=== PATIENT | male | born 1985 | race Caucasian/White ===

== ENCOUNTER 2025-06-14 06:44 | Emergency (ER) | payer SELFPAY ==
[~2025-06-14] VITALS: Ht 182.9 cm; Wt 91.0 kg
[2025-06-14 06:53] VITALS: O2SAT 100
[2025-06-14] MEDS ORDERED: IBUP-2028 PO (08:06)
[2025-06-14 08:19] VITALS: BP 138/91; PULSE 89; RESP 15; TEMP 37; O2SAT 99
[2025-06-14] MEDS: IBUPROFEN 400MG TABLET PO ONE (08:19)
== END 2025-06-14 08:21 | disposition home or self-care (01) ==
LOC: ER 06:44
DX: S60.022A Contusion of left index finger without damage to nail, initial encounter (principal); W01.0XXA Fall on same level from slipping, tripping and stumbling without subsequent striking against object, initial encounter; Y93.89 Activity, other specified; Y92.89 Other specified places as the place of occurrence of the external cause; Y99.8 Other external cause status
CPT/HCPCS: 73120; 99283

== ENCOUNTER 2025-06-16 09:40 | Emergency (ER) | payer SELFPAY ==
[~2025-06-16] VITALS: Ht 182.9 cm; Wt 85.0 kg
[~2025-06-16 09:40] MED LIST: IBUP-2028 PO
[2025-06-16 10:13] VITALS: O2SAT 100
[2025-06-16] MEDS: KETOROLAC 30MG/ML VIAL IM ONE (11:30)
[2025-06-16] MEDS: ACETAMINOPHEN 500MG TABLET PO ONE (11:30)
[2025-06-16] MEDS ORDERED: IBUP-2028 MT (13:18)
[2025-06-16] MEDS ORDERED: AMOX1TAB16 MT (13:20)
[2025-06-16 13:26] VITALS: BP 135/89; PULSE 95; RESP 16; TEMP 36.6; O2SAT 100
== END 2025-06-16 13:35 | disposition home or self-care (01) ==
LOC: ER 09:40
DX: J34.89 Other specified disorders of nose and nasal sinuses (principal); I10 Essential (primary) hypertension; M79.646 Pain in unspecified finger(s); R51.9 Headache, unspecified; Z79.1 Long term (current) use of non-steroidal anti-inflammatories (NSAID); W01.0XXA Fall on same level from slipping, tripping and stumbling without subsequent striking against object, initial encounter; Y93.89 Activity, other specified; Y92.89 Other specified places as the place of occurrence of the external cause; Y99.8 Other external cause status
CPT/HCPCS: 70486; 96372; 99285; J1885; Z7610; 29130